=== PATIENT | female | born 1975 | race Caucasian/White ===

== ENCOUNTER 2018-12-24 09:56 | Outpatient (CLI) | payer BC | END 2018-12-24 20:44 | disposition home or self-care (01) | LOC: SUS 09:56 | PROVIDERS: ATTEND Family Medicine | DX: N83.02 Follicular cyst of left ovary (principal); N88.8 Other specified noninflammatory disorders of cervix uteri | CPT/HCPCS: 70486-TC; 76830-TC; 76857 ==

== ENCOUNTER 2019-02-15 15:09 | Outpatient (CLI) | payer BC | END 2019-02-15 20:23 | disposition home or self-care (01) | LOC: SUS 15:09 | PROVIDERS: ATTEND Family Medicine | DX: N83.292 Other ovarian cyst, left side (principal) | CPT/HCPCS: 76830-TC; 76857 ==

== ENCOUNTER 2019-10-09 21:57 | Emergency (ER) | payer BC ==
[~2019-10-09] VITALS: Ht 160 cm; Wt 68.0 kg
[2019-10-09 22:25] VITALS: BP_SYST 136
--- NOTE | 2019-10-09 23:56 | NUR ---
Patient to ER CHAIR to gown for evaluation. Side rails up.
--- NOTE | 2019-10-09 23:56 | NUR ---
ER at bedside examining patient.
[2019-10-10] MEDS ORDERED: KETOROLAC TROMETHAMINE 30 MG VIAL IVP ONE
[2019-10-10] MEDS ORDERED: NACL 0.9% 1,000 ML IV ONE
[2019-10-10] MEDS ORDERED: ONDANSETRON HCL 4 MG/2 ML VIAL IVP ONE
--- NOTE | 2019-10-10 | NUR ---
Patient brought in by complaining of headache and vomiting today after drinking 3 glasses of wine. Pain 09/21. No other complaints/injuries per patient or as noted. Will continue to monitor.
--- NOTE | 2019-10-10 00:41 | NUR ---
# 20 gauge angiocath placed to RT AC. Use of asceptic technique. Opsite placed over site. Blood return noted. Flushed with 10 cc of normal saline. No evidence of infiltration noted. Patient tolerated well.
[2019-10-10] MEDS ORDERED: MORPHINE 2 MG/ML INJ. SYRINGE IVP ONE (01:30)
[2019-10-10 01:58] VITALS: BP_SYST 133
--- NOTE | 2019-10-10 01:58 | NUR ---
Patient given written and verbal discharge instructions and verbalizes understanding. ER MD discussed with patient the results and treatment provided. Patient in stable condition. ID arm band removed. IV catheter removed intact and dressing applied, no active bleeding. Rx of ZOFRAN given. Patient educated on pain management and to follow up with PMD. Pain Scale 2/10. Opportunity for questions provided and answered. Medication side effect fact sheet provided.
== END 2019-10-10 01:58 | disposition home or self-care (01) ==
LOC: SED 21:57
DX: F10.239 Alcohol dependence with withdrawal, unspecified (principal); R11.10 Vomiting, unspecified; Y90.9 Presence of alcohol in blood, level not specified
CPT/HCPCS: 81002; 81025; 96361; 96374; 96375; 99284; J1885; J2270; J2405; J7030